=== PATIENT | male | born 1955 | race Native Hawaiian/Other Pacific Islander ===

== ENCOUNTER 2017-06-04 10:44 | Outpatient (CLI) | payer OTHER ==
[2017-06-04 15:52] LABS: PLATELET COUNT 81 K/uL (142-355)
[2017-06-04 15:59] LABS: POTASSIUM 3.8 mmol/L (3.6-5.2)
== END 2017-06-04 19:56 | disposition home or self-care (01) ==
LOC: LABW 10:44
PROVIDERS: Nurse Practitioner Family
DX: I25.10 Atherosclerotic heart disease of native coronary artery without angina pectoris (principal); E78.4 Other hyperlipidemia; D69.6 Thrombocytopenia, unspecified; I10 Essential (primary) hypertension; E11.9 Type 2 diabetes mellitus without complications; Z87.39 Personal history of other diseases of the musculoskeletal system and connective tissue; Z12.5 Encounter for screening for malignant neoplasm of prostate
CPT/HCPCS: 36415; 80053; 82043; 82570; 83036; 84153; 84550; 85027

== ENCOUNTER 2017-10-04 10:59 | Outpatient (CLI) | payer OTHER ==
[2017-10-04 11:24] LABS: PLATELET COUNT 76 K/uL (142-355)
[2017-10-04 11:39] LABS: POTASSIUM 3.7 mmol/L (3.6-5.2)
== END 2017-10-04 23:04 | disposition home or self-care (01) ==
LOC: LABW 10:59
PROVIDERS: Nurse Practitioner Family
DX: I25.10 Atherosclerotic heart disease of native coronary artery without angina pectoris (principal); E78.4 Other hyperlipidemia; K21.9 Gastro-esophageal reflux disease without esophagitis; D69.6 Thrombocytopenia, unspecified; E11.9 Type 2 diabetes mellitus without complications; Z87.39 Personal history of other diseases of the musculoskeletal system and connective tissue
CPT/HCPCS: 36415; 80053; 80061; 81000; 82043; 82570; 83036; 84443; 85027

== ENCOUNTER 2020-08-07 14:56 | Outpatient (CLI) | payer OTHER ==
[2020-08-07 15:08] LABS: PLATELET COUNT 93 K/uL (142-355)
[2020-08-07 15:33] LABS: POTASSIUM 4.2 mmol/L (3.6-5.2)
== END 2020-08-07 20:59 | disposition home or self-care (01) ==
LOC: LABW 14:56
PROVIDERS: ATTEND Internal Medicine Hematology & Oncology
DX: D69.6 Thrombocytopenia, unspecified (principal); K74.69 Other cirrhosis of liver; R16.1 Splenomegaly, not elsewhere classified; D50.8 Other iron deficiency anemias; D61.818 Other pancytopenia
CPT/HCPCS: 36415; 80053; 82728; 83540; 83550; 85027

== ENCOUNTER 2020-09-18 14:34 | Outpatient (CLI) | payer OTHER ==
[2020-09-18 14:51] LABS: PLATELET COUNT 90 K/uL (142-355)
[2020-09-18 15:50] LABS: POTASSIUM 4.2 mmol/L (3.6-5.2)
== END 2020-09-18 19:45 | disposition home or self-care (01) ==
LOC: LABW 14:34
PROVIDERS: ATTEND Internal Medicine Hematology & Oncology
DX: D69.6 Thrombocytopenia, unspecified (principal); K74.60 Unspecified cirrhosis of liver; R16.1 Splenomegaly, not elsewhere classified; D50.9 Iron deficiency anemia, unspecified; D61.818 Other pancytopenia
CPT/HCPCS: 36415; 80053; 82728; 83540; 83550; 85027

== ENCOUNTER 2020-10-30 10:58 | Outpatient (CLI) | payer OTHER ==
[2020-10-30 11:10] LABS: PLATELET COUNT 89 K/uL (142-355)
[2020-10-30 12:03] LABS: POTASSIUM 3.8 mmol/L (3.6-5.2)
== END 2020-10-30 20:01 | disposition home or self-care (01) ==
LOC: LABW 10:58
PROVIDERS: ATTEND Internal Medicine Hematology & Oncology
DX: D69.6 Thrombocytopenia, unspecified (principal); K74.69 Other cirrhosis of liver; R16.1 Splenomegaly, not elsewhere classified; D50.8 Other iron deficiency anemias; D61.818 Other pancytopenia
CPT/HCPCS: 36415; 80053; 82728; 83540; 83550; 85027

== ENCOUNTER 2021-01-26 11:04 | Outpatient (CLI) | payer OTHER ==
[2021-01-26 11:51] LABS: PLATELET COUNT 78 K/uL (142-355)
[2021-01-26 12:15] LABS: POTASSIUM 4.4 mmol/L (3.6-5.2)
== END 2021-01-26 19:04 | disposition home or self-care (01) ==
LOC: LABW 11:04
PROVIDERS: ATTEND Internal Medicine Hematology & Oncology
DX: E79.0 Hyperuricemia without signs of inflammatory arthritis and tophaceous disease (principal); D69.6 Thrombocytopenia, unspecified; K74.60 Unspecified cirrhosis of liver; R16.1 Splenomegaly, not elsewhere classified; D50.9 Iron deficiency anemia, unspecified; D61.818 Other pancytopenia
CPT/HCPCS: 36415; 80053; 82607; 82728; 82746; 83540; 83550; 84550; 85027

== ENCOUNTER 2021-05-04 12:54 | Outpatient (CLI) | payer OTHER ==
[2021-05-04 14:16] LABS: PLATELET COUNT 110 K/uL (142-355)
== END 2021-05-04 19:28 | disposition home or self-care (01) ==
LOC: LABW 12:54
PROVIDERS: ATTEND Internal Medicine Hematology & Oncology
DX: D69.6 Thrombocytopenia, unspecified (principal); K74.60 Unspecified cirrhosis of liver; R16.1 Splenomegaly, not elsewhere classified; D50.8 Other iron deficiency anemias; D61.818 Other pancytopenia
CPT/HCPCS: 36415; 80053; 82728; 83540; 83550; 85027

== ENCOUNTER 2021-11-02 10:58 | Outpatient (CLI) | payer OTHER ==
[2021-11-02 11:40] LABS: PLATELET COUNT 72 K/uL (142-355)
[2021-11-02 11:59] LABS: POTASSIUM 3.7 mmol/L (3.6-5.2)
== END 2021-11-02 21:11 | disposition home or self-care (01) ==
LOC: LABW 10:58
PROVIDERS: ATTEND Internal Medicine Hematology & Oncology
DX: D69.6 Thrombocytopenia, unspecified (principal); K74.60 Unspecified cirrhosis of liver; R16.1 Splenomegaly, not elsewhere classified; D50.8 Other iron deficiency anemias; D61.818 Other pancytopenia
CPT/HCPCS: 36415; 80053; 82728; 83540; 83550; 85027